=== PATIENT | female | born 1965 | race American Indian/Alaskan Native ===

== ENCOUNTER 2017-06-19 13:41 | Emergency (ER) | payer SELFPAY ==
[2017-06-19 14:22] VITALS: BP 160/74
--- NOTE | 2017-06-19 15:24 | XRay Report ---
CHEST 2 VIEWS INDICATION: Chest soreness. COMPARISON: None similar at this institution. FINDINGS: PA and lateral chest radiographs demonstrate normal cardiomediastinal silhouette. Clear lungs. Intact bones. CONCLUSION: No acute disease in the chest. Thank you for the opportunity to participate in this patient's care.
--- NOTE | 2017-06-19 18:26 | Emergency Department Report ---
Chief Complaint: Earache Stated Complaint: TROUBLE BREATHING Time Seen by Provider: 06/19/17 18:22 - HPI History of Present Illness: Patient here complaining of right lower abdominal pain in her pelvic area since . Patient stated the pain comes and goes that she is having any pain at present but one is there it feels crampy. Denies any nausea vomiting or diarrhea. Denies any painful urination. Denies any vaginal bleeding or discharge. Last menstrual period was 06/08/2017 - ROS Review of Systems: All systems are negative unless stated in HPI above - Exam Vital Signs: Vital Signs 06/19/17 14:18 Temperature 99.2 F Pulse Rate 88 Respiratory 18 Rate Blood Pressure 160/74 O2 Sat by Pulse 96 Oximetry Physical Exam: Gen.: Is a 52-year-old female well-nourished well-developed in no acute distress Abdomen: Obese, nontender to palpate in all quadrants, soft and normal bowel sounds. MSE screening note: Focused history and physical exam performed. Due to findings the following was ordered: ED Medical Decision Making - Medical Decision Making MDM: Patient screened by provider in triage area. Appropriate protocol initiated and patient to be seen in main ED by ED Disposition for MSE Condition: Stable Referrals: PRIMARY CARE, [Primary Care Provider] - 3-5 Days
[2017-06-19 21:11] LABS: Basophils % (Auto) 0.8 % (0.0-1.8); Eosinophils % (Auto) 5.1 % (0.0-4.3); Mean Corpuscular HGB Conc 30 % (30-34); Platelet Count 351 K/mm3 (140-440); Red Blood Count 5.36 M/mm3 (3.65-5.03); White Blood Count 7.9 K/mm3 (4.5-11.0)
[2017-06-19 21:14] LABS: Anion Gap 21 mmol/L; BUN/Creatinine Ratio 22; Blood Urea Nitrogen 13 mg/dL (7-17); Calcium 9.2 mg/dL (8.4-10.2); Carbon Dioxide 22 mmol/L (22-30); Chloride 98.3 mmol/L (98-107); Glucose 87 mg/dL (65-100); Hematocrit 31.3 % (30.3-42.9); Hemoglobin 9.3 gm/dl (10.1-14.3); Mean Corpuscular Volume 58 fl (79-97); Potassium 4.2 mmol/L (3.6-5.0); Sodium 137 mmol/L (137-145)
[2017-06-19 21:15] LABS: Mean Corpuscular Hemoglobin 17 pg (28-32); Red Cell Distribution Width 22.7 % (13.2-15.2)
[2017-06-19 21:18] LABS: Alanine Aminotransferase 21 units/L (7-56); Albumin 4.4 g/dL (3.9-5); Alkaline Phosphatase 72 units/L (35-129); Lipase 9 units/L (13-60); Total Protein 8.6 g/dL (6.3-8.2)
[2017-06-19 21:19] LABS: Bilirubin,Direct < 0.2 mg/dL (0-0.2); Bilirubin,Indirect 0.4 mg/dL
== END 2017-06-20 00:30 | disposition left against medical advice (07) ==
LOC: ED 13:41
DX: R06.02 Shortness of breath (principal); Z53.21 Procedure and treatment not carried out due to patient leaving prior to being seen by health care provider
CPT/HCPCS: 36415; 71020; 80048; 80074; 83690; 84703; 85025